=== PATIENT | female | born 1950 | race Native Hawaiian/Other Pacific Islander ===

== ENCOUNTER 2018-03-08 14:39 | Outpatient (CLI) | payer OTHER | END 2018-03-08 19:22 | disposition home or self-care (01) | LOC: RAD 14:39 | DX: M85.89 Other specified disorders of bone density and structure, multiple sites (principal) ==

== ENCOUNTER 2018-07-02 14:17 | Emergency (ER) | payer OTHER ==
[~2018-07-02] VITALS: Ht 160 cm; Wt 70.3 kg
[2018-07-02 15:12] VITALS: BP 140/80; TEMP 98
== END 2018-07-02 15:12 | disposition home or self-care (01) ==
LOC: ED 14:17
DX: L72.8 Other follicular cysts of the skin and subcutaneous tissue (principal)
CPT/HCPCS: 99282

== ENCOUNTER 2019-03-22 11:27 | Outpatient (CLI) | payer OTHER | END 2019-03-22 23:59 | disposition home or self-care (01) | LOC: RAD 11:27 | DX: M25.562 Pain in left knee (principal) ==

== ENCOUNTER 2022-09-26 08:50 | Outpatient (CLI) | payer OTHER | END 2022-09-26 19:49 | disposition home or self-care (01) | LOC: MAMMO 08:50 | PROVIDERS: ATTEND Nurse Practitioner Family | DX: Z12.31 Encounter for screening mammogram for malignant neoplasm of breast (principal) ==

== ENCOUNTER 2023-02-15 10:18 | Outpatient (CLI) | payer OTHER | END 2023-02-15 20:25 | disposition home or self-care (01) | LOC: RAD 10:18 | PROVIDERS: ATTEND Nurse Practitioner Family | DX: R07.89 Other chest pain (principal); R10.9 Unspecified abdominal pain; K59.00 Constipation, unspecified; R14.0 Abdominal distension (gaseous); M54.6 Pain in thoracic spine ==